=== PATIENT | male | born 1995 | race Hispanic/Latino ===

== ENCOUNTER 2016-08-30 15:01 | Observation (INO) | payer OTHER ==
[~2016-08-30] VITALS: Ht 175.3 cm; Wt 73.1 kg
--- OUTSIDE RECORDS SUMMARY | 2016-08-30 15:05 | XMS REPORT | Continuity of Care Document ---
Author Author [facility] Address Unknown Phone Unavailable Allergies Active Description Code Type Severity Reaction Onset Reported/Identified Relationship to Patient Clinical Status Yes No Known Drug Allergies [id number] Drug Allergy Unknown N/ A 05/14/2015 Yes No Known Allergies [id number] Drug Allergy Unknown N/A 01/10/2016 Medications Problems Date Dx Coded Attending Type Code Diagnosis Diagnosed By 07/05/2014 Ot 305.1 TOBACCO USE DISORDER 07/05/2014 Ot 789.00 ABDOMINAL PAIN, UNSPECIFIED SITE 05/14/2015 ALEN ALCALA, ANTOINE Marquis Ot L50.0 ALLERGIC URTICARIA 05/14/2015 ALEN ALCALA, ANTOINE Marquis Ot R21 RASH AND OTHER NONSPECIFIC SKIN ERUPTION 11/02/2015 Ot Z53.20 PROC/TRTMT NOT CRD OUT BEC PT DECISION F 12/10/2015 Ot Z53.20 PROC/TRTMT NOT CRD OUT BEC PT DECISION F 01/10/2016 Ot Z53.20 PROC/TRTMT NOT CRD OUT BEC PT DECISION F 01/17/2016 KEEGAN COPPOLA DO Ot J06.9 ACUTE UPPER RESPIRATORY INFECTION, UNSPE 01/17/2016 KEEGAN COPPOLA DO Ot R05 COUGH 01/17/2016 KEEGAN COPPOLA DO Ot R19.7 DIARRHEA, UNSPECIFIED Procedures Results Encounters ACCT No. Visit Date/Time Discharge Status Pt. Type Provider Facility Loc./Unit Complaint [id number] 01/10/2016 00:08:00 2015 00:50:00 DIS Outpatient KEEGAN COPPOLA DO [facility] ED [id number] 05/14/2015 21:44:00 2015 23:20:00 DIS Emergency ANTOINE LOWRY MD [facility] ED [id number] 10/28/2015 16:30:00 ACT Outpatient [facility] EMS REFUSAL [id number] 07/05/2014 21:51:00 Document Registration
--- OUTSIDE RECORDS SUMMARY | 2016-08-30 15:08 | XMS REPORT | Continuity of Care Document ---
Author Author [facility] Address Unknown Phone Unavailable Allergies Active Description Code Type Severity Reaction Onset Reported/Identified Relationship to Patient Clinical Status Yes No Known Drug Allergies [id number] Drug Allergy Unknown N/ A 05/14/2015 Yes No Known Allergies [id number] Drug Allergy Unknown N/A 01/10/2016 Medications Problems [...] Status Pt. Type Provider Facility Loc./Unit Complaint [id number] 01/10/2016 00:08:00 2015 00:50:00 DIS Outpatient KEEGAN COPPOLA DO [facility] ED [id number] 05/14/2015 21:44:00 2015 23:20:00 DIS Emergency ANTOINE LOWRY MD [facility] ED [id number] 10/28/2015 16:30:00 ACT Outpatient [facility] EMS REFUSAL [id number] 07/05/2014 21:51:00 Document Registration
[2016-08-30] MEDS ORDERED: SODIUM CHLORIDE FLUSH 3 ML SYR IV PRN (15:15)
[2016-08-30] MEDS: SODIUM CHLORIDE FLUSH 10 ML SYR IV PRN ×2 (15:23→20:22)
[2016-08-30] MEDS ORDERED: POLYETHYLENE GLYCOL 17 GM (MIRALAX) PACKET PO ONE (15:40)
[2016-08-30] MEDS ORDERED: ACTIVATED CHARCOAL PO ONE (15:40)
[2016-08-30 16:00] LABS: MEAN CORPUSCULAR HGB CONC 34.1 g/dL (31.0-37.0); MEAN CORPUSCULAR VOLUME 85 FL (80-100); MEAN PLATELET VOLUME 9.4 FL (6.0-9.5); PLATELET COUNT 324 10^3uL (150-450); WHITE BLOOD COUNT 13.24 10^3uL (4.0-11.0)
[2016-08-30 16:15] LABS: ALBUMIN 4.3 g/dL (3.4-5.0); ANION GAP 15.4 MEQ/L (3-15); CALCULATED IONIZED CALCIUM 3.8 mg/dL (3.8-4.6); TOTAL PROTEIN 7.3 g/dL (6.4-8.5)
[2016-08-30 16:21] LABS: BAND NEUTROPHILS % 0 % (0-6); LYMPHOCYTES # 1.1 #; SEGMENTED NEUTROPHILS % 89 % (51-67)
[2016-08-30 16:22] LABS: EOSINOPHILS % 0 % (0-4); MONOCYTES # 0.4 #; MONOCYTES % 3 % (3-11); RBC MORPH NORMAL (NORMAL); TOTAL CELLS COUNTED 100
[2016-08-30 16:57] LABS: AMPHETAMINE SCREEN, URINE Positive (Negative); CANNABINOID SCREEN, URINE Negative (Negative); METHAMPHETAMINE SCREEN URINE S NEGATIVE (NEGATIVE); OPIATE SCREEN URINE Negative (Negative); PROPOXYPHENE STAT NEGATIVE (NEGATIVE)
[2016-08-30] MEDS ORDERED: HALOPERIDOL 5 MG/ML (HALDOL) 1 ML AMP IV PRN (19:50)
[2016-08-30] MEDS ORDERED: MAG HYDROX/AL HYDROX/SIMETH 200-200-20/5 ML (MAG-AL PLUS) 30 ML UDC PO PRN (19:50)
[2016-08-30] MEDS ORDERED: ONDANSETRON 4 MG (ZOFRAN) ORAL DISSOLVE TAB PO PRN (19:50)
[2016-08-30] MEDS ORDERED: POLYETHYLENE GLYCOL 17 GM (MIRALAX) PACKET PO PRN (19:50)
[2016-08-30] MEDS ORDERED: ONDANSETRON 2 MG/ML (Z0FRAN) 2 ML VIAL IV PRN (19:50)
[2016-08-30] MEDS ORDERED: MAGNESIUM HYDROXIDE 80MG/ML (MILK OF MAGNESIA) 30 ML UDC PO PRN (19:50)
[2016-08-30] MEDS ORDERED: LORazepam 2 MG/ML (ATIVAN) 1 ML VIAL IV PRN (19:50)
[2016-08-30] MEDS ORDERED: CALCIUM CARBONATE CHEWABLE 300 MG (TUMS) TABLET PO PRN (19:50)
[2016-08-30] MEDS ORDERED: DOCUSATE SODIUM 100 MG (COLACE) CAP PO PRN (19:50)
[2016-08-30] MEDS ORDERED: PROMETHAZINE HCL INJ 12.5 MG in SODIUM CHLORIDE 25 ML IV PRN (19:50)
[2016-08-30] MEDS ORDERED: ACETAMINOPHEN 325 MG TAB (TYLENOL) PO PRN (19:50)
--- NOTE | 2016-08-30 19:51 | NUR ---
Pt admitted to room 313. Brought by EMS. Pt alert oriented and cooperative. Pt has scrapes on his hands and stomach. Saline Lock in his left wrist without redness or edema.
--- NOTE | 2016-08-30 19:59 | History and Physical (E) ---
History & Physical PCP: None CC: methamphetamine ingestion HPI Rakesh Bronson is a 21 year old male admitted from ED 08/30 where he presented with law enforcement. He was evading capture and was observed to swallow approximately 1 gram of methamphetamine. In ED, vitals were stable. WBC was 13.24 with 89% N but no bands. Chemistry stable. Tox positive for amphetamine. He was given NS bolus, charcoal, and polyethylene glycol. Poison control was contacted and whole bowel irrigation was recommended. On arrival to unit, awake, interactive, oriented. Pleasant and cooperative. Denies complaints of nausea, abdominal pain. Has not vomited. Denies feeling anxious or jittery. Has no pain in chest currently but when he felt it before, it was upper right parasternal. PMH * Methamphetamine abuse * Injection drug abuse PSH * None ALLERGIES: Please see list at end of report. HOME MEDICATIONS: Please see list at end of report. FH Mom is healthy. Father's health is unknown. Brother is healthy. SH Homeless x at least 1 year. Stays at friends' houses. Has no permanent residence. Unmarried. Is the father of two children not yet born. Uses methamphetamine. History of marijuana use. No alcohol use. Unemployed. ROS CONSTITUTION: Denies weight loss or gain. Denies fever or chills. HEENT: No change in vision or hearing. No sores in mouth, sore throat. CV: Chest pain as described in HPI. PULM: No cough, shortness of breath, difficulty breathing. GI: No upset stomach, nausea, vomiting, constipation, or diarrhea. No blood in stool. : No dysuria. No blood in urine. MS: No new muscle or joint aches and pains. NEURO: No numbness or tingling. No weakness. INTEG: Fresh abrasion to right hand. ENDO: No heat or cold intolerance. No polydipsia or polyuria. HEME/LYMPH: No easy bruising or bleeding. No swollen glands. PSYCH: No change in mood or behavior. OBJECTIVE Vital Signs Date Time Temp Pulse Resp B/P Pulse Ox O2 Delivery O2 Flow Rate FiO2 08/30/16 15:01 98.0 120 20 117/58 97 Room Air GEN: Awake, alert, oriented, NAD. Slightly groggy but stirs readily to exam. Wearing dirty t-shirt, jeans, socks. HEENT: EOMI, clear sclerae, pupils equal. Dry oral mucosa. CV: RRR S1 S2 normal with no murmur LUNGS: CTA B ABD: Soft, NT/ND with normal bowel sounds. EXTR: No C/C/E. Normal peripheral pulses. INTEG: No rash. Abrasion to right palm. Tattoos. NEURO: No focal motor neuro deficit. Weight: 75 kg Lab-Past 14 Days, 35 Results 08/30/16 15:53: Absolute Band Neutrophils 0.0, Alanine Aminotransferase (ALT/SGPT) 31, Albumin 4.3, Albumin/Globulin Ratio 1.433, Alkaline Phosphatase 87, Anion Gap 15.4H, Aspartate Amino Transf (AST/SGOT) 28, BUN/Creatinine Ratio 15, Band Neutrophils % 0, Basophils # (Auto) , Basophils # (Manual) 0.0, Basophils % (Manual) 0, Basophils (%) (Auto) , Blood Morphology Comment Normal, Blood Urea Nitrogen 14, Calcium Level 8.7L, Calcium/Ionized Calcium Ratio 3.8, Calculated Osmolality 274L, Carbon Dioxide Level 25, Chloride Level 106, Creatinine 0.95, Differential Total Cells Counted 100, Eosinophils # 0.0, Eosinophils # (Auto) , Eosinophils % (Manual) 0, Eosinophils (%) (Auto) , Estimat Glomerular Filtration Rate 121.1, Estimated GFR (Non- 100.1, Glucose Level 96, Hematocrit 42.80, Hemoglobin 14.6, Lymphocytes # 1.1, Lymphocytes # (Auto) , Lymphocytes % (Manual) 8L, Lymphocytes (%) (Auto) , Mean Corpuscular Hemoglobin 29.0, Mean Corpuscular Hemoglobin Concent 34.1, Mean Corpuscular Volume 85, Mean Platelet Volume 9.4, Metamyelocytes % 0, Monocytes # 0.4, Monocytes # (Auto) , Monocytes % (Manual) 3, Monocytes (%) (Auto) , Neutrophils # 11.8, Neutrophils # (Auto) , Neutrophils (%) (Auto) , Platelet Count 324, Potassium Level 4.3, Red Blood Count 5.04, Red Cell Distribution Width 12.1, Segmented Neutrophils % 89H, Sodium Level 142, Total Bilirubin 0.6, Total Protein 7.3, White Blood Count 13.24H 08/30/16 16:35: Ur Tricyclic Antidepressants Screen Negative, Urine Amphetamines Screen PositiveH, Urine Barbiturates Screen Negative, Urine Benzodiazepines Screen Negative, Urine Cannabinoids Screen Negative, Urine Cocaine Screen Negative, Urine Methadone Screen Negative, Urine Methamphetamines Screen Negative, Urine Opiates Screen Negative, Urine Oxycodone Screen Negative, Urine Phencyclidine Screen Negative, Urine Propoxyphene Screen Negative IMAGING 08/30/16 ACUTE ABDOMINAL SERIES: PENDING. ASSESSMENT Rakesh Bronson is a 21 year old male admitted from ED 08/30 with intentional foreign body ingestion (small zip-lock bag with illicit substance) and methamphetamine intoxication. He has history of methamphetamine abuse. He was brought in by law enforcement but was not arrested and was not placed under law enforcement custody. PLAN * Foreign body ingestion: Swallowed a small ziplock bag containing presumed methamphetamine. Got activated charcoal and polyethylene glycol in ED. Monitor BM to see if this passes. Monitor for adverse drug effects. * Methamphetamine Intoxication: Lorazepam PRN. Haloperidol PRN agitation. * F/E/N: NS bolus on admit. General diet. * Prophylaxis: Ambulate * Code Status: Full * Dispo: Observation. High risk of leaving AMA. Is not under police custody and is not under a medical psychiatric hold. Allergies/Home Medications Allergies: Coded Allergies: No Known Allergies (Verified Allergy, Unknown, 01/10/16) Reported Home Medications No Active Prescriptions or Reported Meds Copies to: End of Report . VALERIA TEIXEIRA MD Aug 30, 2016 18:20
[2016-08-30 20:10] VITALS: BP 117/58
[2016-08-30 20:59] VITALS: BP 110/70
[2016-08-30 21:15] VITALS: BP 110/70
--- NOTE | 2016-08-30 22:21 | NUR ---
Pt asleep in bed head under the blankets. IV bolus continues.
--- NOTE | 2016-08-30 22:31 | NUR ---
Bolus complete. Pt wakes without difficulty. Reports no heart racing, nausea, or any complaints.
[2016-08-31 00:59] VITALS: BP 118/53
[2016-08-31 04:30] VITALS: BP 123/63
--- NOTE | 2016-08-31 05:10 | NUR ---
Poison Control Center phones for update on pt.; report given. Pt. has been resting in a long interval; appears to be in no distress. Pt.'s room is in close proximity to nurse's station for frequent observation.
[2016-08-31 05:30] VITALS: BP 120/60
--- NOTE | 2016-08-31 05:30 | NUR ---
Neuro check within normal limits. Pt. states he has not passed the bag of narcotics yet; denies adverse effects; appears to be calm with no signs of anxiety noted. Will continue to monitor.
--- NOTE | 2016-08-31 06:30 | NUR ---
Ice water provided to pt.; pt. denies nausea/discomfort; watching tv; very pleasant and cooperative.
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
[2016-08-31 07:53] VITALS: BP 108/62
--- NOTE | 2016-08-31 08:55 | Discharge Instructions (E) ---
Discharge Instructions Instructions * Your were observed in hospital because you ingested a plastic bag of unknown substance. Your vital signs remained stable. You said you had a bowel movement and that you passed to bag. You are expected to fully recover. However, you should seek immediate medical attention if you have blood in your stool, if you cannot have a bowel movement, if you have pain with defecation, or if you experience any symptoms of drug overdose such has racing heart rate, confusion, dizziness, etc. * Stop using methamphetamine. Review the provided handout for details. * Do not ingest objects. These can cause damage to your gastrointestinal tract. Activity Instructions As tolerated. Discharge Diet: VALERIA Lockhart MD Aug 31, 2016 08:55
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
--- NOTE | 2016-08-31 09:22 | NUR ---
0830:Patient informs this RN that he had a BM containing the plastic bag with meth in it. 0915: The IV is removed and the patient is discharged at this time
--- NOTE | 2016-08-31 10:01 | NUR ---
Contacted by Dr. Cisneros regarding concerns for Pt. being homeless. SW visited with Pt. who denied being homeless or needing a place to stay. He stated he has a place to stay in the "[facility]". He said this is a safe place for him. SW talked to him about making better decisions and Pt. said he is not ready to do that yet. He said he has been doing this since he was 7 years old. He was in treatment recently for a couple months at [facility] ([facility]) in [place]. He told them not to waste their breath he wasn't interested in changing. Pt. was court ordered to attend this treatment. He has a training and development officer but hasn't seen him recently. Pt. stated he should probably go see him. SW talked to Pt. about following up with [facility] as an outpatient here in [place] and Pt. was aware of this. SW discussed [facility]. Pt. had a friend that went to the [facility] but his friend didn't do so well there. [facility]M offered to provide Pt. with a list of resources for housing, homeless shelters and treatment options. Pt. declined this offer. BELEM walked Pt. out after discharge and Pt. stated he has been unemployed for a year. He worked at [employer] before this. Pt. reports he plans to move to [place] soon to go stay with his mom. Pt. has no family in this area.
== END 2016-08-31 09:15 | disposition home or self-care (01) ==
LOC: ED 15:04 → MED/SURG 19:28
PROVIDERS: ADMIT Internal Medicine; ATTEND Internal Medicine
DX: T18.9XXA Foreign body of alimentary tract, part unspecified, initial encounter (principal); F15.120 Other stimulant abuse with intoxication, uncomplicated; Z59.0 Homelessness; X58.XXXA Exposure to other specified factors, initial encounter
CPT/HCPCS: 36415; 74022; 80053; 80307; 85025; 93005; 99283; J7030; 93010; 96361; 99284

== ENCOUNTER → 2016-08-30 | Outpatient (CLI) | payer SELFPAY ==
[~2016-08-30] MED LIST: BENZ-22 PO; DICY20TA10 PO; EPIN0.3P2 IM; PRED20TA PO
== END ==
LOC: EMS 14:45
DX: Z53.20 Procedure and treatment not carried out because of patient's decision for unspecified reasons (principal)